=== PATIENT | female | born 1940 | race Caucasian/White ===

== ENCOUNTER 2020-03-18 05:50 | Outpatient (CLI) | payer MEDICAID ==
[~2020-03-18] VITALS: Ht 165.1 cm; Wt 43.2 kg
== END 2020-03-18 10:52 ==
LOC: PREOP 05:50
PROVIDERS: ATTEND Specialist
DX: Z01.818 Encounter for other preprocedural examination (principal); H25.12 Age-related nuclear cataract, left eye

== ENCOUNTER 2020-03-19 08:04 | Day surgery (SDC) | payer MEDICAID, MEDICARE ==
[~2020-03-19] VITALS: Ht 165.1 cm; Wt 43.2 kg
--- OUTSIDE RECORDS SUMMARY | 2020-03-19 08:14 | XMS REPORT | Continuity of Care Document ---
Author Organization Unknown Address Unknown Phone Unavailable Allergies There is no data. Medications There is no data. Problems There is no data. Procedures There is no data. Results There is no data. Encounters ACCT No. Visit Date/Time Discharge Status Pt. Type Provider Facility Loc./Unit Complaint [id number] 03/19/2020 10:45:00 P EN Preadmit QUE NICHOLS, VIK [facility] CATARACT RIGHT EYE
[2020-03-19 09:00] VITALS: BP 119/65
[2020-03-19] MEDS ORDERED: MOXIFLOXACIN OPHTH SOLN 5 MG/ML 0.3 ML SYRINGE OP ONE (09:00)
[2020-03-19] MEDS ORDERED: TIMOLOL MALEATE 0.5% 5 ML (TIMOPTIC) BTL OU PRN (09:00)
[2020-03-19] MEDS ORDERED: POVIDONE (BETADINE) OPHTH SOLN 5% 30 ML OP ONE (09:00)
[2020-03-19] MEDS ORDERED: LIDOCAINE PF 1% 2 ML VIAL IR PRN (09:00)
[2020-03-19] MEDS: TETRACAINE 0.5% OPHTH SOLN 4 ML BTL (SINGLE DOSE ONLY) OU PRN ×4 (09:04→09:31)
[2020-03-19] MEDS: CYCLOPENTOLATE 1% (CYCLOGYL) 2 ML DROPS OP SCH ×3 (09:18→09:31)
[2020-03-19] MEDS: PHENYLEPHRINE 10% OPHTH (NEO-SYN) 5 ML BTL OU SCH ×3 (09:18→09:31)
[2020-03-19] MEDS ORDERED: MIDAZOLAM 2 MG/2 ML (VERSED) VIAL ONE (09:23)
--- NOTE | 2020-03-19 10:07 | Ophthalmologist Pre-Op Note ---
Pre-Operative Progress Note H&P Reviewed The H&P was reviewed, patient examined and no changes noted. Date H&P Reviewed: Mar 19, 2020 Time H&P Reviewed: 10:06 Pre-Op Dx Cataract, Left Eye VIK GREY MD Mar 19, 2020 10:06
[2020-03-19] MEDS ORDERED: acetaZOLAMIDE ER 500 MG CAP (DIAMOX SEQUELS) PO ONE (10:30)
--- NOTE | 2020-03-19 10:37 | Ophthalmology Operative Report ---
Cataract removal/placement IOL PREOPERATIVE DIAGNOSIS: Cataract Left Eye POSTOPERATIVE DIAGNOSIS: Cataract Left Eye PROCEDURE: Cataract removal and placement of posterior chamber implant, left eye SURGEON: Cesar Grey ANESTHESIA: Topical with sedation COMPLICATIONS: None ESTIMATED BLOOD LOSS: Minimal DESCRIPTION OF PROCEDURE: After proper informed consent was obtained, the patient, a 79 female, was taken to the Operating Room and the left eye was anesthetized with tetracaine. The left eye was then prepped and draped in the usual manner. A wire lid speculum was placed. A paracentesis was made at the left hand position. Preservative free lidocaine was injected into the anterior chamber followed by viscoelastic. A clear corneal incision was made in the temporal position. A capsulorrhexis was preformed and the central nuclear and cortical material were removed. The posterior capsule was polished and an Manish 27.5 AU00T0 was placed into the capsular bag. The residual viscoelastic was aspirated and balanced saline solution was injected into the anterior chamber. Moxifloxacin was injected into the anterior chamber. The wound was checked and found to be water tight. The patient tolerated the procedure well without complications. CESAR GREY MD Mar 19, 2020 10:37
[2020-03-19 11:00] VITALS: BP 118/62
--- NOTE | 2020-03-19 13:32 | Anesthesia-General Post-Op ---
MAC Patient Condition Mental Status/LOC: Same as Preop Cardiovascular: Satisfactory Nausea/Vomiting: Absent Respiratory: Satisfactory Pain: Controlled Complications: Absent Post Op Complications Complications None Follow Up Care/Instructions Patient Instructions None needed. Anesthesiology Discharge Order Discharge Order Patient was seen after the procedure and she was doing well, no complaints, stable vital signs, no apparent adverse anesthesia problems. QUOC BAXTER DO Mar 19, 2020 13:32
== END 2020-03-19 11:00 | disposition home or self-care (01) ==
LOC: SDC 08:04
PROVIDERS: ATTEND Specialist
DX: H25.12 Age-related nuclear cataract, left eye (principal); Z87.891 Personal history of nicotine dependence; Z88.5 Allergy status to narcotic agent

== ENCOUNTER 2020-04-01 09:34 | Outpatient (CLI) | payer MEDICARE, MEDICAID | END 2020-04-01 09:43 | disposition home or self-care (01) | LOC: PREOP 09:34 | PROVIDERS: ATTEND Specialist | DX: Z01.818 Encounter for other preprocedural examination (principal) ==

== ENCOUNTER → 2020-04-02 | Day surgery (SDC) | payer MEDICARE, MEDICAID ==
[~2020-04-02] VITALS: Ht 162.6 cm; Wt 43.1 kg
[~2020-04-02] MED LIST: LIDOCAINE PF 1% 2 ML VIAL IR PRN; MIDAZOLAM 2 MG/2 ML (VERSED) VIAL ONE; MOXIFLOXACIN OPHTH SOLN 5 MG/ML 0.3 ML SYRINGE OP ONE; POVIDONE (BETADINE) OPHTH SOLN 5% 30 ML OP ONE; TIMOLOL MALEATE 0.5% 5 ML (TIMOPTIC) BTL OU PRN; acetaZOLAMIDE ER 500 MG CAP (DIAMOX SEQUELS) PO ONE
[2020-04-02 09:40] VITALS: BP 124/60
[2020-04-02] MEDS: TETRACAINE 0.5% OPHTH SOLN 4 ML BTL (SINGLE DOSE ONLY) OU PRN ×5 (09:50→10:11)
[2020-04-02] MEDS: CYCLOPENTOLATE 1% (CYCLOGYL) 2 ML DROPS OP SCH ×3 (09:56→10:11)
[2020-04-02] MEDS: PHENYLEPHRINE 10% OPHTH (NEO-SYN) 5 ML BTL OU SCH ×3 (09:56→10:11)
--- NOTE | 2020-04-02 10:30 | Ophthalmologist Pre-Op Note ---
Pre-Operative Progress Note H&P Reviewed The H&P was reviewed, patient examined and no changes noted. Date H&P Reviewed: Apr 02, 2020 Time H&P Reviewed: 10:29 Pre-Op Dx Cataract, Right Eye VIK GREY MD Apr 02, 2020 10:30
--- NOTE | 2020-04-02 10:51 | Ophthalmology Operative Report ---
Cataract removal/placement IOL PREOPERATIVE DIAGNOSIS: Cataract Right Eye POSTOPERATIVE DIAGNOSIS: Cataract Right Eye PROCEDURE: Cataract removal and placement of posterior chamber implant, right eye SURGEON: Cesar Grey ANESTHESIA: Topical with sedation COMPLICATIONS: None ESTIMATED BLOOD LOSS: Minimal DESCRIPTION OF PROCEDURE: After proper informed consent was obtained, the patient, a 79 female, was taken to the Operating Room and the right eye was anesthetized with tetracaine. The right eye was then prepped and draped in the usual manner. A wire lid speculum was placed. A paracentesis was made at the left hand position. Preservative free lidocaine was injected into the anterior chamber followed by viscoelastic. A clear corneal incision was made in the temporal position. A capsulorrhexis was preformed and the central nuclear and cortical material were removed. The posterior capsule was polished and Manish 27.0 AU00T0 IOL was placed into the capsular bag. The residual viscoelastic was aspirated and balanced saline solution was injected into the anterior chamber. Moxifloxacin was injected into the anterior chamber. The wound was checked and found to be water tight. The patient tolerated the procedure well without complications. CESAR GREY MD Apr 02, 2020 10:51
--- NOTE | 2020-04-02 10:59 | Anesthesia-General Post-Op ---
MAC Patient Condition Mental Status/LOC: Same as Preop Cardiovascular: Satisfactory Nausea/Vomiting: Absent Respiratory: Satisfactory Pain: Controlled Complications: Absent Post Op Complications Complications None Follow Up Care/Instructions Patient Instructions None needed. Anesthesiology Discharge Order Discharge Order Patient is doing well, no complaints, stable vital signs, no apparent adverse anesthesia problems. No complications reported per nursing. RANDY DOBSON [employer] LOCATION MANAGER Apr 02, 2020 10:59
[2020-04-02 11:00] VITALS: BP 106/90
--- NOTE | 2020-04-02 11:28 | Ophthalmology Operative Report ---
Cataract removal/placement IOL PREOPERATIVE DIAGNOSIS: Cataract Left Eye POSTOPERATIVE DIAGNOSIS: Cataract Left Eye PROCEDURE: Cataract removal and placement of posterior chamber implant, left eye SURGEON: Cesar Grey ANESTHESIA: Topical with sedation COMPLICATIONS: None ESTIMATED BLOOD LOSS: Minimal DESCRIPTION OF PROCEDURE: After proper informed consent was obtained, the patient, a 79 female, was taken to the Operating Room and the left eye was anesthetized with tetracaine. The left eye was then prepped and draped in the usual manner. A wire lid speculum was placed. A paracentesis was made at the left hand position. Preservative free lidocaine was injected into the anterior chamber followed by viscoelastic. A clear corneal incision was made in the temporal position. A capsulorrhexis was preformed and the central nuclear and cortical material were removed. The posterior capsule was polished and an Manish 27.0 AU00T0 was placed into the capsular bag. The residual viscoelastic was aspirated and balanced saline solution was injected into the anterior chamber. Moxifloxacin was injected into the anterior chamber. The wound was checked and found to be water tight. The patient tolerated the procedure well without complications. CESAR GREY MD Apr 02, 2020 11:28
== END | disposition home or self-care (01) ==
LOC: SDC 09:08
PROVIDERS: ATTEND Specialist
DX: H25.11 Age-related nuclear cataract, right eye (principal); Z88.5 Allergy status to narcotic agent; Z87.891 Personal history of nicotine dependence
CPT/HCPCS: 66984; V2632

== ENCOUNTER 2020-04-29 05:40 | Outpatient (CLI) | payer MEDICARE, MEDICAID ==
[~2020-04-29] VITALS: Ht 165 cm; Wt 43.1 kg
== END 2020-04-29 11:38 | disposition home or self-care (01) ==
LOC: PREOP 05:40
PROVIDERS: ATTEND Specialist
DX: Z01.818 Encounter for other preprocedural examination (principal)

== ENCOUNTER 2020-04-30 09:27 | Day surgery (SDC) | payer MEDICARE, MEDICAID ==
[~2020-04-30] VITALS: Ht 165 cm; Wt 43.0 kg
[2020-04-30 09:30] VITALS: BP 99/52
[2020-04-30] MEDS: TROPICAMIDE 1% OPH SOLN (MYDRIACYL) 15 ML BTL OU PRN ×2 (09:46→09:57)
[2020-04-30] MEDS: PHENYLEPHRINE 10% OPHTH (NEO-SYN) 5 ML BTL OU PRN ×2 (09:46→09:57)
[2020-04-30] MEDS: TETRACAINE 0.5% OPHTH SOLN 4 ML BTL (SINGLE DOSE ONLY) OU PRN ×2 (09:46→09:57)
--- NOTE | 2020-04-30 09:54 | Ophthalmologist Pre-Op Note ---
Pre-Operative Progress Note H&P Reviewed The H&P was reviewed, patient examined and no changes noted. Date H&P Reviewed: Apr 30, 2020 Time H&P Reviewed: 09:54 Pre-Op Dx Secondary Cataract, Right Eye VIK GREY MD Apr 30, 2020 09:54
[2020-04-30 10:03] VITALS: BP 99/52
--- NOTE | 2020-04-30 10:06 | Ophthalmology Operative Report ---
YAG Capsulotomy PREOPERATIVE DIAGNOSIS: Secondary Cataract Right Eye POSTOPERATIVE DIAGNOSIS: Secondary Cataract Right Eye PROCEDURE: YAG Capsulotomy, right eye SURGEON: Cesar Grey ANESTHESIA: Topical anesthesia COMPLICATIONS: None ESTIMATED BLOOD LOSS: Minimal DESCRIPTION OF PROCEDURE: After proper informed consent was obtained, the patient's, a 79 female, right eye received one drop of Tropicamide and one drop of Tetracaine. The patient was then placed at the YAG laser and using a power of [ 3.4] millijoules and [15 ] bursts were used to fashion a central capsulotomy. The patient tolerated the procedure well without complications. CESAR GREY MD Apr 30, 2020 10:06
== END 2020-04-30 10:03 | disposition home or self-care (01) ==
LOC: SDC 09:27
PROVIDERS: ATTEND Specialist
DX: H26.491 Other secondary cataract, right eye (principal); Z88.5 Allergy status to narcotic agent; Z87.891 Personal history of nicotine dependence